=== PATIENT | female | born 1985 | race Caucasian/White ===

== ENCOUNTER 2024-11-15 08:09 | Outpatient (OUT) | payer BC, SELFPAY ==
--- NOTE | 2024-11-15 08:33 | XR_ITS ---
The [address] [address] Patient Name: JUDY LOMBARDO MRN: [id number] date: 1985 Sex: F Assigned Patient Location: LAB Current Patient Location: LAB Accession/Order Number: [id number] Exam Date: 11/15/2024 08:42 Report Date: 11/15/2024 09:12 At the request of: ELY STERN Procedure: XR chest 2V EXAM: XR chest 2V HISTORY: Dyspnea COMPARISON: None. TECHNIQUE: 2 views FINDINGS: The heart and mediastinum are unremarkable lungs are clear. No focal tracer seen. No effusions are noted. Clips are seen within the right upper quadrant presumed from prior cholecystectomy. XR/XR chest 2V IMPRESSION: No acute cardiopulmonary pathology. Electronically authenticated by: Emmett RAGSDALE Date: 11/15/2024 09:12
[2024-11-15 09:18] LABS: Basophils Percent Auto 0.6 % (0.2-2.0); Eosinophils Absolute Auto 0.1 10^3/uL (0.0-0.7); Eosinophils Percent Auto 2.3 % (0.9-7.0); Hematocrit 39.9 % (36.0-48.0); Hemoglobin 13.1 g/dL (12.0-16.0); Immature Granulocytes Abs Auto 0.01 10^3/uL (0.00-0.03); Immature Granulocytes Pct Auto 0.2 % (0.0-0.5); Lymphocytes Absolute Auto 1.6 10^3/uL (1.2-3.8); Lymphocytes Percent Auto 32.8 % (20.5-60.0); Mean Corpuscular HGB Conc 32.8 g/dL (29.9-35.2); Mean Corpuscular Hemoglobin 29.4 pg (26.7-34.0); Mean Corpuscular Volume 89.7 fL (81.0-99.0); Mean Platelet Volume 10.1 fL (9.5-13.5); Monocytes Absolute Auto 0.3 10^3/uL (0.3-0.8); Monocytes Percent Auto 5.9 % (1.7-12.0); Neutrophils Absolute Auto 2.8 10^3/uL (1.4-6.5); Neutrophils Percent Auto 58.2 % (43.0-75.0); Platelet Count 242 10^3/uL (150-450); Red Blood Count 4.45 10^6/uL (4.20-5.40); Red Cell Distribution Width 13.1 % (11.0-15.0); White Blood Count 4.7 10^3/uL (4.0-11.0)
[2024-11-15 09:28] LABS: Estimated Average Glucose 103 mg/dL; Glycohemoglobin A1C 5.2 % (4.5-6.2)
[2024-11-15 10:25] LABS: Alanine Aminotransferase 19 U/L (14-59); Albumin Globulin Ratio 1.1; Alkaline Phosphatase 70 U/L (46-116); Anion Gap 12.4; Aspartate Amino Transferase 13 U/L (15-37); BUN Creatinine Ratio 14.5; Bilirubin Total 0.4 mg/dL (0.2-1.0); C Reactive Protein <0.50 mg/dL (<=0.50); Calcium 9.1 mg/dL (8.5-10.1); Carbon Dioxide 26.5 mmol/L (21.0-32.0); Chloride 103 mmol/L (98-107); Chol HDL Ratio 3.5; Cholesterol 175 mg/dL (<=200); Estimated GFR (African America >60 (>=60 mL/min/1.73m^2); Estimated GFR (Non-African Ame >60 (>=60 mL/min/1.73m^2); Free T3 3.23 pg/mL (2.18-3.98); Globulin 3.8 g/dL; Glucose 93 mg/dL (74-106); HDL Cholesterol 50 mg/dL (40-60); LDL Cholesterol Calculated 103.6 mg/dL; Potassium 3.9 mmol/L (3.5-5.1); Sodium 138 mmol/L (136-145); Thyroid Stimulating Hormone 1.712 uIU/mL (0.358-3.740); Total Protein 7.8 g/dL (6.4-8.2); Triglycerides 107 mg/dL (<=150); VLDL CHOLESTEROL 21.4 mg/dL
== END 2024-11-15 08:10 | disposition home or self-care (01) ==
LOC: LAB 08:20
PROVIDERS: PCP Family Medicine; Visit Provider Family Medicine
DX: R06.00 Dyspnea, unspecified (principal)
CPT/HCPCS: 36415; 71046; 80053; 80061; 83036; 83880; 84436; 84443; 84481; 85025; 86140

== ENCOUNTER 2024-12-05 07:50 | Outpatient (OUT) | payer BC, SELFPAY ==
--- NOTE | 2024-12-05 07:50 | CA_ITS ---
Patient Name: JUDY LOMBARDO MR#: [id number] : 1985 Exam Date: 12/05/2024 Ordering Doctor: DR Koko Noble . ECHOCARDIOGRAM REPORT PROCEDURE: CA ECHO DOPPLER COMPLETE INDICATIONS: Dyspnea COMPARISON: None. DESCRIPTION: COMPLETE ECHOCARDIOGRAM Real-time transthoracic echocardiography with 2D, M-mode, spectral and color flow Doppler performed. QUALITY: Technical quality was good. LEFT VENTRICLE: Normal chamber size. Normal left ventricular wall thickness. LV EF: Global left ventricular systolic function is normal. Visual estimation of left ventricular ejection fraction is 60-65%. No significant wall motion abnormalities. DIASTOLIC: Normal diastolic function. ATRIAL SEPTUM: Inadequately seen. LEFT ATRIUM: Normal chamber size. RIGHT ATRIUM: Normal chamber size. RIGHT VENTRICLE: Normal chamber size. Normal right ventricular systolic function. TRICUSPID VALVE: Normal mobility and thickness. No stenosis with trivial regurgitation. No evidence of pulmonary hypertension. RVSP 17mmHg MITRAL VALVE: Normal mobility and thickness. No evidence of mitral valve stenosis. There is no mitral annular calcification. No mitral regurgitation. AORTIC VALVE: Normal trileaflet appearance. No visible sclerosis. Normal leaflet mobility. No evidence of aortic valve stenosis. No aortic regurgitation. AORTIC ROOT: Normal diameter and appearance. PULMONIC VALVE: Normal thickness and mobility. No stenosis. No regurgitation. PERICARDIUM: No evidence of pericardial effusion. IVC: Collapses with inspirations. Normal size. CONCLUSION: 1. Global left ventricular systolic function is normal; visually estimated ejection fraction is 60 to 65% 2. Normal right ventricular size and systolic function 3. Normal diastolic function 4. The left atrium is normal in size 5. No significant valvular abnormalities Adult Echocardiography Procedure Report Left Ventricle LVEDD (3.7 - 5.6 cm): 4.07 cm LVESD (2.2 - 4.0 cm): 2.74 cm LVIVS thickness (0.6 - 1.2 cm): 0.94 cm LVPW thickness (0.5 - 1.0 cm): 0.87 cm e': 0.14 m/s E - e': 5.25 LVOT Max Gradient: 3.60 mm[Hg], 3.87 mm[Hg] LVOT Area (cm2): 0.97 m/s Peak Velocity (LVOT): 0.95 m/s, 0.98 m/s Mean Velocity (LVOT): 0.60 m/s LVOT Diameter 1.94 cm Left Ventricular Ejection Fraction: 71.55 % Left Atrium LA Volume Index (2D A2C): 23.40 ml/m2 Left Atrium Systolic Dimension: 3.00 cm Mitral Valve MV E to A Ratio: 1.29, 1.36 Mitral Valve A-Wave Peak Velocity: 0.57 m/s Mitral Valve E-Wave Peak Velocity: 0.76 m/s Right Ventricle RV Internal Diastolic Dimension: 2.92 cm Aorta AO Root Diam: 2.49 cm Ascending Ao Diam: 2.51 cm Aortic Valve AoV Area (Peak Alexei): 2.34 cm2, 2.30 cm2 AoV Area (VTI): 2.81 cm2, 2.79 cm2 Peak Velocity(Antegrade Flow): 1.22 m/s Peak Gradient(Antegrade Flow): 5.92 mm[Hg] Mean Velocity(Antegrade Flow): 0.83 m/s Mean Gradient(Antegrade Flow): 3.01 mm[Hg] Velocity Time Integral: 23.15 cm Tricuspid Valve Peak Velocity (Regurgitant Flow): 1.87 m/s Pulmonic Valve Mean Gradient: 2.27 mm[Hg] Mean Velocity: 0.72 m/s Peak Velocity: 0.97 m/s, 0.88 m/s Peak Gradient: 3.11 mm[Hg], 3.74 mm[Hg] Right Atrium Right Atrium Systolic Pressure: 20.89 ml, 20.89 ml Dictated by: Sb Whipple M.D. on 12/05/2024 at 12:44 Approved by: Sb Whipple M.D. on 12/05/2024 at 12:49
--- OUTSIDE RECORDS SUMMARY | 2024-12-05 07:58 | XMS_ITS | CCD ---
Author Organization [facility] Care Team Providers Care Canteen Attendant Name Role Phone MISC, DOCTOR Admitting Unavailable FLOYD, DOCTOR Attending Unavailable ELY STERN Primary Care Unavailable FLOYD, DOCTOR Consulting Unavailable MOOK CASTILLO Consulting Unavailable ELY STERN Admitting Unavailable ELY STERN Attending Unavailable CHARMAINE LERMA Consulting Unavailable CHARMAINE LERMA Procedure Practitioner Unavaila ELY Smyth Consulting Unavailable DANILO LORENZO V Consulting Unavailable AGWILFREDO CASTELLANOS Consulting Unavailable IVONNE HOUGH Consulting Unavailable Problems Problem Classification Problem Date Documented Date Episodic/Chronic Abdominal pain (4 sources) Right upper quadrant pain; Translations: [RIGHT UPPER QUADRANT PAIN] Onset: 10-24-2018 Episodic Biliary tract disease (2 sources) Calculus of gallbladder with acute cholecystitis without obstruction; Translations: [Calculus of gallbladder without cholecystitis without obstruction] Onset: 10-26-2018 Episodic Other screening for suspected conditions (not mental disorders or infectious disease) (1 source) Other specified abnormal findings of blood chemistry; Translations: [OTH SPEC ABNORMAL FINDINGS BLD CHEM] Onset: 10-30-2018 Episodic Results Test Name Value Interpretation Reference Range Facil ity CBC AUTO DIFFon 10-26-2018 Basophils #/vol (Bld) 0.0 103/ul Normal 0.0-0.1 [facility] Comment on above: Performed By: #### C BC #### [facility] [address] [place], [place] [address] Juvencio Mehnaz Basophils/100 WBC (Bld) 0.2 % Normal 0.2-2.[address] [facility] Comment on above: Performed By: #### C BC #### [facility] [address] [place], [place] [address] Juvencio Mehnaz Eosinophils #/vol (Bld) 0.0 103/ul Normal 0.0-0.7 [facility] Comment on above: Performed By: #### C BC #### [facility] [address] [place] [id number] Juvencio Darby Eosinophils/100 WBC (Bld) 0.0 % Critically low 0.9-7.0 [facility] Comment on above: Performed By: #### C BC #### [facility] [address] [place] [id number] Juvencio Darby Erythrocyte distribution width Ratio (RBC) 12.5 % Normal 11.0-15.0 [facility] Comment on above: Performed By: #### C BC #### [facility] [address] [place] [phone] Juvencio Darby Hematocrit Volume Fraction (Bld) 33.5 % Critically low 36.0-48.0 [facility] Comment on above: Performed By: #### C BC #### [facility] [address] [place], [place] [address] Juvencio Darby Hemoglobin mass conc (Bld) 11.2 g/dL Critically low 12.0-16.0 [facility] Comment on above: Performed By: #### C BC #### [facility] [address] [place], [place] [address] Juvencio Mehnaz IG # 0.02 10e3/ul Normal 0.00-0.03 [facility] Comment on above: Performed By: #### C BC #### [facility] [address] [place] [address] Juvencio Mehnaz IG % 0.3 % Normal 0.0-0.5 [facility] Comment on above: Performed By: #### C BC #### [facility] [address] [place], [place] [address] Juvencio Mehnaz Lymphocytes #/vol (Bld) 0.8 103/ul Critically low 1.2-3.[address] [facility] Comment on above: Performed By: #### C BC #### [facility] [address] [place], [place] [address] Juvencio Mehnaz Lymphocytes/100 WBC (Bld) 11.9 % Critically low 20.5-60.0 [facility] Comment on above: Performed By: #### C BC #### [facility] [address] [place] [phone] Juvencio Darby MANUAL DIFF REQ NO Normal [facility] Comment on above: Performed By: #### C BC #### [facility] [address] [place] [phone] Juvencio Darby MCH Entitic mass (RBC) 30.2 pg Normal 26.7-34.0 [facility] Comment on above: Performed By: #### C BC #### [facility] [address] [place] [phone] Juvencio Darby MCHC mass conc (RBC) 33.4 g/dL Normal 29.9-35.[address] [facility] Comment on above: Performed By: #### C BC #### [facility] [address] [place], [place] [address] Juvencio Darby MCV Entitic volume (RBC) 90.3 fL Normal 81.0-99.0 [facility] Comment on above: Performed By: #### C BC #### [facility] [address] [place], [place] [address] Juvencio Darby Monocytes #/vol (Bld) 0.4 103/ul Normal 0.3-0.8 [facility] Comment on above: Performed By: #### C BC #### [facility] [address] [place], [place] [address] Juvencio Roseen Monocytes/100 WBC (Bld) 6.2 % Normal 1.7-12.[address] [facility] Comment on above: Performed By: #### C BC #### [facility] [address] [place] [address] Juvenciocheri Darby Neutrophils #/vol (Bld) 5.4 103/ul Normal 1.4-6.[address] [facility] Comment on above: Performed By: #### C BC #### [facility] [address] [place], [place] [address] Juvencio Mehnaz Neutrophils/100 WBC (Bld) 81.4 % Critically high 43.0-75.0 [facility] Comment on above: Performed By: #### C BC #### [facility] [address] [place], [place] [address] Juvenciocheri Darby Platelet mean volume Entitic volume (Bld) 10.0 fL Normal 9.5-13.5 [facility] Comment on above: Performed By: #### C BC #### [facility] [address] [place], [place] [address] Juvencio Mehnaz Platelets #/vol (Bld) 160 103/ul Normal 150-[address] [facility] Comment on above: Performed By: #### C BC #### [facility] [address] [place], [place] [address] Juvencio Mehnaz RBC #/vol (Bld) 3.71 106/ul Critically low 4.20-5.40 [facility] Comment on above: Performed By: #### C BC #### [facility] [address] [place] [address] Juvencio Mehnaz WBC #/vol (Bld) 6.7 103/ul Normal 4.0-11.0 [facility] Comment on above: Performed By: #### C BC #### [facility] [address] [place] [address] Juvencio Darby PROF 14(COMP METB)on 018 Albumin mass conc 3.2 g/dL Critically low 3.5-5.0 [facility] Comment on above: Performed By: #### C BC #### [facility] [address] [place] [address] Juvencio Mehnaz Albumin/Globulin mass ratio 1.1 {ratio} Normal [facility] Comment on above: Performed By: #### C BC #### [facility] [address] [place], [place] [address] Juvencio Mehnaz ALP enzyme act/vol 64 U/L Normal 38-126 [facility] Comment on above: Performed By: #### C BC #### [facility] [address] [place], [place] [address] Juvencio Mehnaz ALT enzyme act/vol 66 U/L Critically high 9-52 [facility] Comment on above: Performed By: #### C BC #### [facility] [address] [place] [address] Juvenciocheri Darby Anion gap molar conc 15.3 mmol/L Normal [facility] Comment on above: Performed By: #### C BC #### [facility] [address] [place] [phone] Juvencio Darby AST enzyme act/vol 22 U/L Normal 14-36 [facility] Comment on above: Performed By: #### C BC #### [facility] [address] [place] [address] Juvencio Darby Bilirubin Ql (U) 0.6 mg/dL Normal 0.2-1.3 [facility] Comment on above: Performed By: #### C BC #### [facility] [address] [place] [address] Juvencio Mehnaz Calcium mass conc 8.6 mg/dL Normal 8.4-10.[address] [facility] Comment on above: Performed By: #### C BC #### [facility] [address] [place] [address] Juvencio Mehnaz Chloride molar conc 106 mmol/L Normal 98-107 [facility] Comment on above: Performed By: #### C BC #### [facility] [address] [place] [address] Juvencio Mehnaz CO2 molar conc 21.6 mmol/L Critically low 22.0-30.0 [facility] Comment on above: Performed By: #### C BC #### [facility] [address] [place], [place] [address] Juvencio Mehnaz Creatinine mass conc 0.55 mg/dL Normal 0.52-1.04 [facility] Comment on above: Performed By: #### C BC #### [facility] [address] [place] [phone] Juvencio Mehnaz EGFR-AF PRYDEINIG >60 Normal >=60 [facility] Comment on above: Performed By: #### C BC #### [facility] [address] [place] [address] Juvencio Mehnaz EGFR-NON AF PRYDEINIG >60 Normal >=[address] [facility] Comment on above: Performed By: #### C BC #### [facility] [address] [place] [address] Juvencio Mehnaz Globulin mass conc (S) 3.0 g/dL Normal [facility] Comment on above: Performed By: #### C BC #### [facility] [address] [place] [address] Juvencio Mehnaz Glucose mass conc 89 mg/dL Normal 74-[address] [facility] Comment on above: Performed By: #### C BC #### [facility] [address] [place] [address] Juvencio Mehnaz Potassium molar conc 3.9 mmol/L Normal 3.4-5.[address] [facility] Comment on above: Performed By: #### C BC #### [facility] [address] [place] [address] Juvencio Mehnaz Protein mass conc 6.2 g/dL Normal 6.1-8.[address] [facility] Comment on above: Performed By: #### C BC #### [facility] [address] [place] [address] Juvencio Mehnaz Sodium molar conc 139 mmol/L Normal 137-[address] [facility] Comment on above: Performed By: #### C BC #### [facility] [address] [place] [address] Juvencio Mehnaz Urea nitrogen mass conc 5.0 mg/dL Critically low 7.0-17.[address] [facility] Comment on above: Performed By: #### C BC #### [facility] [address] [place] [address] Juvencio Mehnaz Urea nitrogen/Creatinine mass ratio 9.1 mg/mg Normal [facility] Comment on above: Performed By: #### C BC #### [facility] [address] [place], [place] [address] Juvencio Mehnaz CBC AUTO DIFFon 10-25-2018 Basophils #/vol (Bld) 0.0 103/ul Normal 0.0-0.[address] [facility] Comment on above: Performed By: #### C BC #### [facility] [address] [place], [place] [address] Juvencio Mehnaz Basophils/100 WBC (Bld) 0.5 % Normal 0.2-2.0 [facility] Comment on above: Performed By: #### C BC #### [facility] [address] [place] [address] Juvencio Darby Eosinophils #/vol (Bld) 0.1 103/ul Normal 0.0-0.7 [facility] Comment on above: Performed By: #### C BC #### [facility] [address] [place] [address] Juvencio Darby Eosinophils/100 WBC (Bld) 1.6 % Normal 0.9-7.0 [facility] Comment on above: Performed By: #### C BC #### [facility] [address] [place] [address] Juvencio Darby Erythrocyte distribution width Ratio (RBC) 12.5 % Normal 11.0-15.0 [facility] Comment on above: Performed By: #### C BC #### [facility] [address] [place] [address] Juvencio Darby Hematocrit Volume Fraction (Bld) 33.8 % Critically low 36.0-48.0 [facility] Comment on above: Performed By: #### C BC #### [facility] [address] [place] [address] Juvencio Darby Hemoglobin mass conc (Bld) 11.3 g/dL Critically low 12.0-16.[address] [facility] Comment on above: Performed By: #### C BC #### [facility] [address] [place] [address] Juvencio Darby IG # 0.01 10e3/ul Normal 0.00-0.03 [facility] Comment on above: Performed By: #### C BC #### [facility] [address] [place] [address] Juvencio Darby IG % 0.3 % Normal 0.0-0.[address] [facility] Comment on above: Performed By: #### C BC #### [facility] [address] [place] [address] Juvencio Darby Lymphocytes #/vol (Bld) 1.0 103/ul Critically low 1.2-3.8 [facility] Comment on above: Performed By: #### C BC #### [facility] [address] [place], [place] [address] Juvencio Mehnaz Lymphocytes/100 WBC (Bld) 28.0 % Normal 20.5-60.0 [facility] Comment on above: Performed By: #### C BC #### [facility] [address] [place], [place] [address] Juvencio Mehnaz MANUAL DIFF REQ NO Normal [facility] Comment on above: Performed By: #### C BC #### [facility] [address] [place] [address] Juvencio Mehnaz MCH Entitic mass (RBC) 30.1 pg Normal 26.7-34.0 [facility] Comment on above: Performed By: #### C BC #### [facility] [address] [place] [address] Juvencio Mehnaz MCHC mass conc (RBC) 33.4 g/dL Normal 29.9-35.2 [facility] Comment on above: Performed By: #### C BC #### [facility] [address] [place], [place] [address] Juvencio Mehnaz MCV Entitic volume (RBC) 90.1 fL Normal 81.0-99.0 [facility] Comment on above: Performed By: #### C BC #### [facility] [address] [place], [place] [address] Juvencio Mehnaz Monocytes #/vol (Bld) 0.3 103/ul Normal 0.3-0.[address] [facility] Comment on above: Performed By: #### C BC #### [facility] [address] [place], [place] [address] Juvencio Mehnaz Monocytes/100 WBC (Bld) 8.0 % Normal 1.7-12.[address] [facility] Comment on above: Performed By: #### C BC #### [facility] [address] [place], [place] [address] Juvencio Mehnaz Neutrophils #/vol (Bld) 2.2 103/ul Normal 1.4-6.[address] [facility] Comment on above: Performed By: #### C BC #### [facility] [address] [place], [place] [address] Juvencio Darby Neutrophils/100 WBC (Bld) 61.6 % Normal 43.0-75.0 [facility] Comment on above: Performed By: #### C BC #### [facility] [address] [place], [place] [address] Juvenciocheri Darby Platelet mean volume Entitic volume (Bld) 10.2 fL Normal 9.5-13.5 [facility] Comment on above: Performed By: #### C BC #### [facility] [address] [place], [place] [address] Juvenciocheri Darby Platelets #/vol (Bld) 161 103/ul Normal 150-[address] [facility] Comment on above: Performed By: #### C BC #### [facility] [address] [place], [place] [address] Juvencio Darby RBC #/vol (Bld) 3.75 106/ul Critically low 4.20-5.40 [facility] Comment on above: Performed By: #### C BC #### [facility] [address] [place], [place] [address] Juvenciocheri aDrby WBC #/vol (Bld) 3.6 103/ul Critically low 4.0-11.0 [facility] Comment on above: Performed By: #### C BC #### [facility] [address] [place], [place] [address] Juvencio Darby CULTURE URINEon 10-25-2018 CULTURE URINE Culture Observations: NO GROWTH Normal [facility] Comment on above: Performed By: #### C BC #### [facility] [address] [place], [place] [address] Juvencio Darby PROF 14(COMP METB)on 018 Albumin mass conc 3.5 g/dL Normal 3.5-5.0 [facility] Comment on above: Performed By: #### C BC #### [facility] [address] [place] [phone] Juvencio Darby Albumin/Globulin mass ratio 1.2 {ratio} Normal [facility] Comment on above: Performed By: #### C BC #### [facility] [address] [place], [place] [address] Juvencio Mehnaz ALP enzyme act/vol 72 U/L Normal 38-126 [facility] Comment on above: Performed By: #### C BC #### [facility] [address] [place], [place] [address] Juvencio Mehnaz ALT enzyme act/vol 92 U/L Critically high 9-52 [facility] Comment on above: Performed By: #### C BC #### [facility] [address] [place], [place] [address] Juvencio Mehnaz Anion gap molar conc 13.8 mmol/L Normal [facility] Comment on above: Performed By: #### C BC #### [facility] [address] [place] [phone] Juvencio Mehnaz AST enzyme act/vol 40 U/L Critically high 14-36 [facility] Comment on above: Performed By: #### C BC #### [facility] [address] [place] [phone] Juvencio Mehnaz Bilirubin Ql (U) 0.8 mg/dL Normal 0.2-1.3 [facility] [place] [facility] Comment on above: Performed By: #### C BC #### [facility] [address] [place] [phone] Juvencio Mehnaz Calcium mass conc 8.7 mg/dL Normal 8.4-10.2 [facility] Comment on above: Performed By: #### C BC #### [facility] [address] [place] [phone] Juvencio Mehnaz Chloride molar conc 105 mmol/L Normal 98-107 [facility] Comment on above: Performed By: #### C BC #### [facility] [address] [place] [phone] Juvencio Mehnaz CO2 molar conc 22.8 mmol/L Normal 22.0-30.0 [facility] Comment on above: Performed By: #### C BC #### [facility] [address] [place] [phone] Juvencio Mehnaz Creatinine mass conc 0.60 mg/dL Normal 0.52-1.[address] [facility] Comment on above: Performed By: #### C BC #### [facility] [address] [place] [phone] Juvencio Mehnaz EGFR-AF PRYDEINIG >60 Normal >=60 [facility] Comment on above: Performed By: #### C BC #### [facility] [address] [place] [phone] Juvencio Mehnaz EGFR-NON AF PRYDEINIG >60 Normal >=[address] [facility] Comment on above: Performed By: #### C BC #### [facility] [address] [place] [address] Juvencio Mehnaz Globulin mass conc (S) 3.0 g/dL Normal [facility] Comment on above: Performed By: #### C BC #### [facility] [address] [place] [address] Juvencio Mehnaz Glucose mass conc 99 mg/dL Normal 74-[address] [facility] Comment on above: Performed By: #### C BC #### [facility] [address] [place] [address] Juvencio Mehnaz Potassium molar conc 3.6 mmol/L Normal 3.4-5.[address] [facility] Comment on above: Performed By: #### C BC #### [facility] [address] [place] [address] Juvencio Mehnaz Protein mass conc 6.5 g/dL Normal 6.1-8.[address] [facility] Comment on above: Performed By: #### C BC #### [facility] [address] [place] [address] Juvencio Mehnaz Sodium molar conc 138 mmol/L Normal 137-[address] [facility] Comment on above: Performed By: #### C BC #### [facility] [address] [place] [address] Juvencio Mehnaz Urea nitrogen mass conc 7.0 mg/dL Normal 7.0-17.[address] [facility] Comment on above: Performed By: #### C BC #### [facility] [address] [place] [address] Juvencio Mehnaz Urea nitrogen/Creatinine mass ratio 11.7 mg/mg Normal [facility] Comment on above: Performed By: #### C BC #### [facility] [address] [place], [place] [address] Juvencio Mehnaz AMYLASEon 10-24-2018 Amylase enzyme act/vol 22 U/L Critically low 31-[address] [facility] Comment on above: Performed By: #### A MY, CMP, LIPA, LIPID, MG #### [facility] [address] [place], [place] [address] Juvencio Mehnaz CBC AUTO DIFFon 10-24-2018 Basophils #/vol (Bld) 0.0 103/ul Normal 0.0-0.[address] [facility] Comment on above: Performed By: #### C BC #### [facility] [address] [place] [address] Juvenciocheri Darby Basophils/100 WBC (Bld) 0.5 % Normal 0.2-2.[address] [facility] Comment on above: Performed By: #### C BC #### [facility] [address] [place] [address] Juvencio Mehnaz Eosinophils #/vol (Bld) 0.0 103/ul Normal 0.0-0.[address] [facility] Comment on above: Performed By: #### C BC #### [facility] [address] [place] [address] Juvenciocheri Darby Eosinophils/100 WBC (Bld) 0.5 % Critically low 0.9-7.[address] [facility] Comment on above: Performed By: #### C BC #### [facility] [address] [place] [address] Juvenciocheri Roseen Erythrocyte distribution width Ratio (RBC) 12.5 % Normal 11.0-15.[address] [facility] Comment on above: Performed By: #### C BC #### [facility] [address] [place] [address] Juvenciocheri Roseen Hematocrit Volume Fraction (Bld) 37.7 % Normal 36.0-48.[address] [facility] Comment on above: Performed By: #### C BC #### [facility] [address] [place], [place] [address] Juvencio Mehnaz Hemoglobin mass conc (Bld) 12.6 g/dL Normal 12.0-16.0 [facility] Comment on above: Performed By: #### C BC #### [facility] [facility] [address] [place] [address] Juvencio Darby IG # 0.02 10e3/ul Normal 0.00-0.03 [facility] Comment on above: Performed By: #### C BC #### [facility] [address] [place] [address] Juvencio Darby IG % 0.3 % Normal 0.0-0.5 [facility] Comment on above: Performed By: #### C BC #### [facility] [address] [place] [address] Juvencio Darby Lymphocytes #/vol (Bld) 0.9 103/ul Critically low 1.2-3.[address] [facility] Comment on above: Performed By: #### C BC #### [facility] [address] [place] [address] Juvencio Darby Lymphocytes/100 WBC (Bld) 13.9 % Critically low 20.5-60.0 [facility] Comment on above: Performed By: #### C BC #### [facility] [address] [place] [address] Juevncio Darby MANUAL DIFF REQ NO Normal The [facility] Comment on above: Performed By: #### C BC #### [facility] [address] [place] [address] Juvencio Darby MCH Entitic mass (RBC) 30.3 pg Normal 26.7-34.0 [facility] Comment on above: Performed By: #### C BC #### [facility] [address] [place] [address] Juvencio Darby MCHC mass conc (RBC) 33.4 g/dL Normal 29.9-35.[address] [facility] Comment on above: Performed By: #### C BC #### [facility] [address] [place] [address] Juvencio Darby MCV Entitic volume (RBC) 90.6 fL Normal 81.0-99.0 [facility] Comment on above: Performed By: #### C BC #### [facility] [address] [id number] Juvencio Mehnaz Monocytes #/vol (Bld) 0.4 103/ul Normal 0.3-0.8 [facility] Comment on above: Performed By: #### C BC #### [facility] [address] [id number] Juvencio Mehnaz Monocytes/100 WBC (Bld) 6.1 % Normal 1.7-12.0 [facility] Comment on above: Performed By: #### C BC #### [facility] [address] [place], [place] [address] Juvencio Mehnaz Neutrophils #/vol (Bld) 4.9 103/ul Normal 1.4-6.5 [facility] Comment on above: Performed By: #### C BC #### [facility] [address] [place], [place] [address] Juvencio Mehnaz Neutrophils/100 WBC (Bld) 78.7 % Critically high 43.0-75.0 [facility] Comment on above: Performed By: #### C BC #### [facility] [address] [place], [place] [address] Juvenciocheri Roseen Platelet mean volume Entitic volume (Bld) 10.1 fL Normal 9.5-13.5 The [facility] Comment on above: Performed By: #### C BC #### [facility] [address] [place], [place] [address] Juvencio Mehnaz Platelets #/vol (Bld) 194 103/ul Normal 150-[address] [facility] Comment on above: Performed By: #### C BC #### [facility] [address] [place], [place] [address] Juvencio Mehnaz RBC #/vol (Bld) 4.16 106/ul Critically low 4.20-5.[address] [facility] Comment on above: Performed By: #### C BC #### [facility] [address] [place], [place] [address] Juvencio Mehnaz WBC #/vol (Bld) 6.2 103/ul Normal 4.0-11.0 [facility] Comment on above: Performed By: #### C BC #### [facility] [address] [place], [place] [address] ABD/PELVIS W CONon 2017 CT ABD/PELVIS W CON [address] [place] [address] Patient: JUDY LOMBARDO Exam Date: 10/24/2018 : 1985 Gender:F Ordering : DR ELY STERN . Admission #: [id number] Family : DR CHARMAINE LERMA . Order #: [id number] CLICK HERE TO VIEW EXAM RADIOLOGY REPORT PROCEDURE: CT ABDOMEN AND PELVIS WITH CONTRAST COMPARISON: CT ABD/PELVIS W CON, 06/23/2017. INDICATIONS: Acute right upper quadrant pain TECHNIQUE: CT images were created with IV contrast. Axial, Coronal, and Sagittal images. DOSE: 531 mGycm; 100 cc Omnipaque 300 FINDINGS: LUNG BASES: No visible pulmonary or pleural disease. LIVER: No enlargement, atrophy, abnormal density, or significant focal lesion. BILIARY: Moderate distention of the gallbladder. A layering hyperdensity possibly sludge. Mild dilation of the intrahepatic and extrahepatic biliary tree PANCREAS: No lesion, fluid collection, ductal dilatation, or atrophy. SPLEEN: No enlargement or focal lesion. ADRENALS: No mass or enlargement. KIDNEYS: No mass, obstruction, or calcification. BOWEL/MESENTERY: No visible mass, obstruction, or bowel wall thickening. Normal appendix AORTA/VASCULAR: No aneurysm or dissection. RETROPERITONEUM: No mass or adenopathy. LYMPH NODES: No adenopathy. URINARY BLADDER: No visible focal wall thickening, lesion, or calculus. PELVIC ORGANS: Enlarged heterogeneous uterus and cervix, correlate with the menstrual cycle. 2.2 cm right adnexal simple cyst. ABDOMINAL WALL: No mass or hernia. BONES: No bony lesion or fracture. CONCLUSION: 1. Mildly dilated gallbladder and biliary tree with tiny amount of gallbladder sludge/cholelithiasi s 2. 2.2 cm right adnexal simple cyst Dictated by: Danilo Lorenzo M.D. on 10/24/2018 at 14:43 Approved by: Danilo Lorenzo M.D. on 10/24/2018 at 14:57 Normal [facility] LIPASEon 10-24-2018 Lipase enzyme act/vol 90.0 U/L Normal 23.0-300.0 [facility] Comment on above: Performed By: #### A MY, CMP, LIPA, LIPID, MG #### [facility] [address] [address] Juvencio Mehnaz LIPID PROFILEon 10-24-2018 CHOL-HDL RATIO NORM SEE BELOW Normal [facility] Comment on above: Result Comment: 3.3 - 4.4 LOW RISK 4.4 - 7.1 AVERAGE RISK 7.1 - 11.0 MODERATE RISK >11.0 HIGH RISK Performed By: #### A MY, CMP, LIPA, LIPID, MG #### [facility] [address] [address] Juvencio Mehnaz Cholesterol in HDL mass conc > or = 60 mg/dl - LOW CARDIOVASCULAR RISK <40 mg/dl - HIGH CARDIOVASCULAR RISK Normal [facility] Comment on above: Performed By: #### A MY, CMP, LIPA, LIPID, MG #### [facility] [address] [address] Juvencio Mehnaz Cholesterol in HDL mass conc 59 mg/dL Normal [facility] Comment on above: Performed By: #### A MY, CMP, LIPA, LIPID, MG #### [facility] [address] [address] Juvencio Mehnaz Cholesterol in LDL mass conc SEE BELOW Normal [facility] Comment on above: Result Comment: <100 mg/dl OPTIMAL 100 - 129 mg/dl NEAR OR ABOVE OPTIMAL 130 - 159 mg/dl BORDERLINE HIGH 160 - 189 mg/dl HIGH >190 mg/dl VERY HIGH Performed By: #### A MY, CMP, LIPA, LIPID, MG #### [facility] [address] [address] Juvencio Mehnaz Cholesterol in LDL mass conc 69.4 mg/dL Normal [facility] Comment on above: Performed By: #### A MY, CMP, LIPA, LIPID, MG #### [facility] [address] [address] Juvencio Mehnaz Cholesterol mass conc 146 mg/dL Normal <=200 [facility] Comment on above: Performed By: #### A MY, CMP, LIPA, LIPID, MG #### [facility] [address] [address] Juvencio Darby Cholesterol.total/Ch olesterol in HDL mass ratio 2.5 {ratio} Normal [facility] Comment on above: Performed By: #### A MY, CMP, LIPA, LIPID, MG #### [facility] [address] [address] Juvencio Darby Triglyceride mass conc 88 mg/dL Normal <=[address] [facility] Comment on above: Performed By: #### A MY, CMP, LIPA, LIPID, MG #### [facility] [address] [place] [address] Juvencio Darby VLDL CALC 17.6 mg/dL Normal The [facility] Comment on above: Performed By: #### A MY, CMP, LIPA, LIPID, MG #### [facility] [address] [place] [address] Juvencio Darby MAGNESIUMon 10-24-2018 Magnesium mass conc 1.8 mg/dL Normal 1.6-2.3 [facility] Comment on above: Performed By: #### A MY, CMP, LIPA, LIPID, MG #### [facility] [address] [place] [address] Juvencio Darby PREG HCG QUALon 10-24-2018 , QUAL Negative Normal NEGATIVE [facility] Comment on above: Performed By: #### C BC #### [facility] [address] [address] Juvencio Darby PROF 14(COMP METB)on 018 Albumin mass conc 4.2 g/dL Normal 3.5-5.[address] [facility] Comment on above: Performed By: #### A MY, CMP, LIPA, LIPID, MG #### [facility] [address] [place] [address] Juvencio Darby Albumin/Globulin mass ratio 1.2 {ratio} Normal The [facility] Comment on above: Performed By: #### A MY, CMP, LIPA, LIPID, MG #### [facility] [address] [place], [place] [address] Juvencio Mehnaz ALP enzyme act/vol 86 U/L Normal 38-126 The [facility] Comment on above: Performed By: #### A MY, CMP, LIPA, LIPID, MG #### [facility] [address] [place], [place] [address] Juvencio Mehnaz ALT enzyme act/vol 103 U/L Critically high 9-52 [facility] Comment on above: Performed By: #### A MY, CMP, LIPA, LIPID, MG #### [facility] [address] [address] Juvencio Mehnaz Anion gap molar conc 15.4 mmol/L Normal [facility] Comment on above: Performed By: #### A MY, CMP, LIPA, LIPID, MG #### [facility] [address] [address] Juvencio Mehnaz AST enzyme act/vol 46 U/L Critically high 14-36 [facility] Comment on above: Performed By: #### A MY, CMP, LIPA, LIPID, MG #### [facility] [address] [address] Juvencio Mehnaz Bilirubin Ql (U) 1.2 mg/dL Normal 0.2-1.3 [facility] Comment on above: Performed By: #### A MY, CMP, LIPA, LIPID, MG #### [facility] [address] [place], [place] [address] Juvencio Mehnaz Calcium mass conc 9.2 mg/dL Normal 8.4-10.2 [facility] Comment on above: Performed By: #### A MY, CMP, LIPA, LIPID, MG #### [facility] [address] [id number] Juvencio Mehnaz Chloride molar conc 103 mmol/L Normal 98-107 [facility] Comment on above: Performed By: #### A MY, CMP, LIPA, LIPID, MG #### [facility] [address] [id number] Juvencio Mehnaz CO2 molar conc 23.9 mmol/L Normal 22.0-30.0 [facility] Comment on above: Performed By: #### A MY, CMP, LIPA, LIPID, MG #### [facility] [address] [address] Juvencio Mehnaz Creatinine mass conc 0.63 mg/dL Normal 0.52-1.04 [facility] Comment on above: Performed By: #### A MY, CMP, LIPA, LIPID, MG #### [facility] [address] [address] Juvencio Mehnaz EGFR-AF PRYDEINIG >60 Normal >=60 [facility] Comment on above: Performed By: #### A MY, CMP, LIPA, LIPID, MG #### [facility] [address] [place] [address] Juvencio Mehnaz EGFR-NON AF PRYDEINIG >60 Normal >=60 [facility] Comment on above: Performed By: #### A MY, CMP, LIPA, LIPID, MG #### [facility] [address] [place] [address] Juvencio Mehnaz Globulin mass conc (S) 3.6 g/dL Normal [facility] Comment on above: Performed By: #### A MY, CMP, LIPA, LIPID, MG #### [facility] [address] [place] [address] Juvencio Mehnaz Glucose mass conc 75 mg/dL Normal 74-[address] [facility] Comment on above: Performed By: #### A MY, CMP, LIPA, LIPID, MG #### [facility] [address] [place] [address] Juvencio Mehnaz Potassium molar conc 4.3 mmol/L Normal 3.4-5.[address] [facility] Comment on above: Performed By: #### A MY, CMP, LIPA, LIPID, MG #### [facility] [address] [place] [address] Juvencio Mehnaz Protein mass conc 7.8 g/dL Normal 6.1-8.[address] [facility] Comment on above: Performed By: #### A MY, CMP, LIPA, LIPID, MG #### [facility] [address] [place] [address] Juvencio Mehnaz Sodium molar conc 138 mmol/L Normal 137-[address] [facility] Comment on above: Performed By: #### A MY, CMP, LIPA, LIPID, MG #### [facility] [address] [place] [address] Juvencio Darby Urea nitrogen mass conc 13.0 mg/dL Normal 7.0-17.0 [facility] Comment on above: Performed By: #### A MY, CMP, LIPA, LIPID, MG #### [facility] [address] [place] [address] Juvencio Darby Urea nitrogen/Creatinine mass ratio 20.6 mg/mg Normal [facility] Comment on above: Performed By: #### A MY, CMP, LIPA, LIPID, MG #### [facility] [address] [place] [address] Juvencio Darby PROTIMEon 10-24-2018 INR Coag RelTime (PPP) 1.08 {INR} Normal [facility] Comment on above: Performed By: #### P TT, PT #### [facility] [address] [place] [address] Juvencio Darby Prothrombin time (PT) Coag time (PPP) 11.1 s Normal 9.0-11.6 [facility] Comment on above: Performed By: #### P TT, PT #### [facility] [address] [place] [address] Juvenciocheri Darby Prothrombin time (PT) Coag time (PPP) SEE BELOW Normal [facility] Comment on above: Result Comment: LENORE RED INR: 2.0 - 3.0 CONDITIONS NOT LISTED BELOW 2.5 - 3.5 FOR PROSTHETIC HEART VALVE REPLACEMENT 2.5 - 3.5 RECURRENT THROMBOSIS Performed By: #### P TT, PT #### [facility] [address] [place] [address] Juvencio Mehnaz Prothrombin time (PT) Coag time (PPP) PLEASE NOTE: NORMAL RANGE CHANGE 07-31-2014 DUE TO REAGENT LOT CHANGE Normal The [facility] Comment on above: Performed By: #### P TT, PT #### [facility] [address] [place] [address] Juvenciocheri Darby PTTon 10-24-2018 aPTT Coag time (Bld) PLEASE NOTE: NORMAL RANGE CHANGE 10-07-2015 DUE TO REAGENT LOT CHANGE Normal [facility] Comment on above: Performed By: #### P TT, PT #### [facility] [address] [place] [address] Juvencio Mehnaz aPTT Coag time (Bld) 28.5 s Normal 22.3-36.[address] [facility] Comment on above: Performed By: #### P TT, PT #### [facility] [address] [place], [place] [address] Juvencio Mehnaz SED RATE WESTERGREN 2017 SED RATE 8 mm/hr Normal <=20 [facility] Comment on above: Performed By: #### S EDR #### [facility] [address] [place] [address] Juvencio Mehnaz SEDRH METHOD AND NORMAL CHANGE 12/18/15. RESULTS ARE NOT AFFECTED BY HEMATOCRIT. Normal The [facility] Comment on above: Performed By: #### S EDR #### [facility] [address] [place], [place] [address] Juvencio Mehnaz UA (CLEAN/CATCH) GAS SINGER/MICRO I F IND.on 10-24-2018 Bilirubin.direct mass conc SMALL Normal NEGATIVE [facility] Comment on above: Performed By: #### C BC #### [facility] [address] [place], [place] [address] Juvencio Mehnaz BLOOD Negative Normal NEGATIVE [facility] Comment on above: Performed By: #### C BC #### [facility] [address] [place] [address] Juvencio Mehnaz Clarity Nom (U) CLEAR Normal [facility] Comment on above: Performed By: #### C BC #### [facility] [address] [place], [place] [address] Juvencio Mehnaz Color Nom (U) YELLOW Normal YELLOW The [facility] Comment on above: Performed By: #### C BC #### [facility] [address] [place], [place] [address] Juvencio Mehnaz Glucose mass conc Negative Normal NEGATIVE The [facility] Comment on above: Performed By: #### C BC #### [facility] [address] [place] [address] Juvencio Darby Ketones Ql (U) >=80 Normal NEGATIVE The [facility] Comment on above: Performed By: #### C BC #### [facility] [address] [place] [address] Juvencio Darby Nitrite Ql (U) Negative Normal NEGATIVE The [facility] Comment on above: Performed By: #### C BC #### [facility] [address] [place] [address] Juvencio Darby pH (Bld) 5.5 Normal 5-9 [facility] Comment on above: Performed By: #### C BC #### [facility] [address] [place] [address] Juvencio Darby Protein mass conc TRACE Normal [facility] Comment on above: Performed By: #### C BC #### [facility] [address] [place] [address] Juvencio Darby SPEC GRAVITY >=1.030 Normal 1.005-<=1.025 [facility] Comment on above: Performed By: #### C BC #### [facility] [address] [place] [address] Juvencio Darby UR MICRO IND NOT INDICATED Normal [facility] Comment on above: Performed By: #### C BC #### [facility] [address] [place] [address] Juvencio Darby Urobilinogen Qn (U) 0.2 EU/dl Normal [facility] Comment on above: Performed By: #### C BC #### [facility] [address] [place] [address] Juvencio Darby WBC #/vol (Bld) Negative Normal NEGATIVE [facility] Comment on above: Performed By: #### C BC #### [facility] [address] [place] [address] Juvencio Dabry XR ABD FLAT UP/PA Marco 10-24 XR ABD FLAT UP/PA CH [address] [place] [id number] Patient: JUDY LOMBARDO Exam Date: 10/24/2018 : 1985 Gender:F Ordering : DR ELY STERN . Admission #: [id number] Family : Order #: [id number] CLICK HERE TO VIEW EXAM RADIOLOGY REPORT PROCEDURE: RADIOGRAPH ABDOMEN FLAT/UPRIGHT AND PA CHEST COMPARISON: None. INDICATIONS: Acute right upper quadrant abdominal pain, acute cholecystitis FINDINGS: LUNGS: No infiltrate, pneumothorax, or pleural effusion. MEDIASTINUM: No abnormal widening. BOWEL GAS PATTERN: Non-obstructed. FREE AIR: None. CALCIFICATIONS: None significant. BONES: No fracture or visible bone lesion. OTHER: Negative. CONCLUSION: 1. Clear lungs. 2. Nonobstructive bowel gas pattern Dictated by: Danilo Lorenzo M.D. on 10/24/2018 at 13:18 Approved by: Danilo Lorenzo M.D. on 10/24/2018 at 13:19 [facility] US GALLBLADDERon 10-23-2018 US GALLBLADDER [address] [place] [address] Patient: JUDY LOMBARDO Exam Date: 10/23/2018 : 1985 Gender:F Ordering : DR ELY STERN . Admission #: [id number] Family : Order #: [id number] CLICK HERE TO VIEW EXAM RADIOLOGY REPORT PROCEDURE: ULTRASOUND GALLBLADDER COMPARISON: None. INDICATIONS: Acute right upper quadrant pain TECHNIQUE: Sonographic evaluation of the right upper quadrant of the abdomen was performed. FINDINGS: GALLBLADDER: Contains several stones, largest is 9 mm. A few tiny 3 mm polyps are suspected. Gallbladder wall thickness approaches the upper limits of normal. No free fluid. BILIARY: No abnormal dilatation or stones. Maximum common bile duct diameter: 4.6 mm. PANCREAS: Normal. No visible mass, abnormal atrophy, or ductal dilatation. OTHER: None. CONCLUSION: 1. Cholelithiasis without ultrasound evidence of acute cholecystitis. Early acute cholecystitis cannot be completely excluded. Followup is recommended. DICTATED BY: MOOK CASTILLO M.D. ON 10/23/2018 AT 08:06 APPROVED BY: MOOK CASTILLO M.D. ON 10/23/2018 AT 08:10 [facility] Encounters Encounter Date Encounter Type Care Provider Facility Start: 10-24-2018 End: 10-26-2018 Evaluation and management of inpatient ELY Vincent acility:H1 Start: 10-23-2018 End: 10-24-2018 Patient encounter procedure [facility] Facility:[facility] Procedures Date Procedure Procedure Detail Performing Clinician Start: 10-25-2018 Resection of Gallbla dder, Percutaneous Endoscopic Approach [facility] Payers Date Payer Category Payer Unknown [id number] 1985 Unknown [id number] 1958 Private Health Insurance [id number] 1958 Private Health Insurance [id number] Summary Purpose Family History No Family History Records Found Advance Directives No Advanced Directives Records Found Additional Source Comments INFORMATION SOURCE (unrecogn ized section and content) DATE CREATED AUTHOR 02/23/2019 [facility] FOR RECORDS PERTAINING TO PATIENTS WHO ARE OR HAVE BEEN ENROLLED IN A CHEMICAL DEPENDENCY/SUBSTANCEABUSE PROGRAM, SOME INFORMATION MAY BE OMITTED. This clinical summary was aggregated from multiple sources. Caution should be exercised in using it in the provision of clinical care. This summary normalizes information from multiple sources, and as a consequence, information in this document may materially change the coding, format and clinical context of patient data. In addition, data may be omitted in some cases. CLINICAL DECISIONS SHOULD BE BASED ON THE PRIMARY CLINICAL RECORDS. [facility] [employer] provides no warranty or guarantee of the accuracy or completeness of information in this document.
--- NOTE | 2024-12-05 09:00 | RT_ITS ---
[facility] Test Date: 2024-12-05 Pat Name: JUDY LOMBARDO Department: Room: - Gender: Female Band Top Maker: Annette Crane RRT : 1985 Requested By: ELY STERN Order Number: [id number] Reading MD: Chemo Manriquez Interpretive Statements Pulmonary function testing was completed according to ATS criteria. Findings were considered accurate and reproducible. Both pre- and post-bronchodilator values utilized for spirometry. Spirometry (based on pre-bronchodilator values): -FEV1/FVC: Normal @ 76% -FEV1: Normal @ 96% -FVC: Normal @ 104% -There is no significant bronchodilator response. Lung volumes by plethysmography (based on pre-bronchodilator values): -RV: Normal @ 117% -TLC: Normal @ 113% Diffusion capacity: -DLCO: Normal @ 96% when corrected for Hb 13.1/dL Impressions: -Technically normal PFT. If asthma remains in the differential, may consider methacholine challenge testing. Clinical correlation required. Electronically Signed On 12-10-2024 16:22:36 EST by Chemo Manriquez
[2024-12-05] MEDS: ALBUTEROL SULFATE 2.5 MG/3 ML VIAL NEB IH (09:20)
== END 2024-12-05 07:51 | disposition home or self-care (01) ==
LOC: CARD 07:50
PROVIDERS: PCP Family Medicine; Visit Provider Family Medicine
DX: R06.00 Dyspnea, unspecified (principal)
CPT/HCPCS: 93246; 93306; 94060; 94726; 94729